=== PATIENT | female | born 1995 ===

== ENCOUNTER 2018-04-20 12:10 | Emergency (ER) | payer OTHER ==
[~2018-04-20] VITALS: Ht 177.8 cm; Wt 83.9 kg
[~2018-04-20 12:10] MED LIST: BUPR75 PO; L-METHYLFOLATE15 M1 PO; LITH300C PO
[2018-04-20] MEDS ORDERED: Robaxin500 MG PO (13:22)
[2018-04-20] MEDS ORDERED: NAPR550 PO (13:22)
== END 2018-04-20 13:35 | disposition home or self-care (01) ==
LOC: ER 12:10
DX: M54.41 Lumbago with sciatica, right side (principal); Z79.899 Other long term (current) drug therapy
CPT/HCPCS: 99283

== ENCOUNTER → 2020-03-26 | Outpatient (CLI) | payer OTHER ==
[~2020-03-26] MED LIST changes: +NAPR550 PO; +Robaxin500 MG PO
== END | disposition home or self-care (01) ==
LOC: LAB 10:49 → LAB SHORT 10:49
DX: N39.0 Urinary tract infection, site not specified (principal)
CPT/HCPCS: 87077; 87086; 87186

== ENCOUNTER 2020-12-16 14:29 | Observation (INO) | payer OTHER, SELFPAY ==
[~2020-12-16] VITALS: Ht 177.8 cm; Wt 88.5 kg
[2020-12-16 14:59] LABS: BASOPHILS ABSOLUTE AUTO 0.03 K/mm3 (0.00-0.23); BASOPHILS PERCENT AUTO 0 % (0-2); EOSINOPHILS ABSOLUTE AUTO 0.16 K/mm3 (0.00-0.68); EOSINOPHILS PERCENT AUTO 2 % (0-6); Hematocrit 39.5 % (33.0-51.0); Hemoglobin 13.7 g/dL (11.5-16.0); IMMATURE GRAN ABSOLUTE AUTO 0.01 K/mm3 (0.00-0.10); IMMATURE GRAN PERCENT AUTO 0 % (0-1); LYMPHOCYTES ABSOLUTE AUTO 1.82 K/mm3 (0.84-5.20); LYMPHOCYTES PERCENT AUTO 27 % (21-46); MONOCYTES ABSOLUTE AUTO 0.49 K/mm3 (0.16-1.47); MONOCYTES PERCENT AUTO 7 % (4-13); Mean Corpuscular HGB 30.8 pg (26.0-34.0); Mean Corpuscular HGB Conc 34.7 g/dL (31.5-36.5); Mean Corpuscular Volume 89 fL (80-100); Mean Platelet Volume 11.7 fL (9.1-12.4); NEUTROPHILS ABSOLUTE AUTO 4.19 K/mm3 (1.96-9.15); NEUTROPHILS PERCENT AUTO 63 % (41-73); Platelet Count 235 K/mm3 (150-400); RDW Coefficient Variation 11.7 % (11.7-14.2); RDW Standard Deviation 37.4 fL (35.1-46.3); Red Blood Cell Count 4.45 M/mm3 (3.80-5.20)
[2020-12-16 15:23] LABS: Anion Gap 5 mmol/L (6-16); Blood Urea Nitrogen 11 mg/dL (8-24); Bun/Creatinine Ratio 14.6 (12.0-20.0); CO2, Blood 25 mmol/L (21-32); Calcium, Blood 9.5 mg/dL (8.5-10.1); Chloride, Blood 108 mmol/L (98-108); Creatinine, Blood 0.76 mg/dL (0.40-1.00); Glomerular Filtration Rate >60 (60-); Glucose, Blood 88 mg/dL (70-99); Potassium, Blood 4.2 mmol/L (3.5-5.5); Sodium, Blood 138 mmol/L (136-145)
[2020-12-16 16:46] LABS: Source, Urine Clean Catch
[2020-12-16 17:05] LABS: Appearance, Urine Cloudy (Clear); Bilirubin, Urine Neg (Neg); Blood, Urine 3+ (Neg); Color, Urine Yellow (P-Yellow); Glucose Qualitative, Urine Neg (Neg); Ketones, Urine Neg (Neg); Leukocyte Esterase, Urine Neg (Neg); Nitrite, Urine Pos (Neg); Protein, Urine Neg (Neg); Urobilinogen, Urine NORM (Normal)
[2020-12-16 17:54] LABS: Amorphous Mod (0-Heavy); Bacteria Many /hpf; Squamous Epithelial Cells Few /hpf (Few); White Blood Cells, Urine Not Seen /hpf (0-5)
[2020-12-16 21:14] LABS: Lithium <0.20 mmol/L (0.60-1.20)
--- NOTE | 2020-12-17 00:10 | NUR ---
PT ARRIVED TO FLOOR FROM ER. PT ALERT, VSS. PT REP ABD PAIN W/PALP IN RLQ AND LLQ, PT DECLINES NNED FOR PAIN MEDS AT THIS TIME. PT REP OCC N/V, DENIES AT THIS TIME. PT DENIES PAIN W/VOIDING. PT ORIENTED TO ROOM/CALL LIGHT AND NPO STATUS FOR PLAN FOR SURGERY TOMORROW. COVID SWAB SENT; AWAITING RESULTS.
[2020-12-17 00:22] LABS: Influenza A, PCR NEGATIVE (NEGATIVE); Influenza B, PCR NEGATIVE (NEGATIVE); Resp Syncytial Virus, PCR NEGATIVE (NEGATIVE); SARS-Cov-2 (COVID-19) PCR, MMC NEGATIVE (NEGATIVE)
--- NOTE | 2020-12-17 07:15 | NUR ---
History, Chart, Medications and Allergies reviewed before start of procedure. Patient confirms NPO status and agrees with scheduled surgery.
--- NOTE | 2020-12-17 08:12 | NUR ---
PT IN OR.
--- NOTE | 2020-12-17 08:27 | NUR ---
12/17/20 0827 Arash Gunter PATIENT ON SCHEDULED ANTIBIOTICS
--- NOTE | 2020-12-17 09:58 | NUR ---
ARRIVED BACK FROM PACU VIA GURANNIE, PT ABLE TO TRANSFER SELF TO BED, AWAKE, A&OX4, DENIES ANY NEED FOR PAIN MEDS AT THIS TIME, DENIES ANY NAUSEA, C/O DRY MOUTH, ICE CHIPS AND CLEAR LIQUIDS GIVEN, ABD W/ 3 LAP INCISIONS, C/D/I, STERISTRIPS INTACT, CONT. TO MONITOR VS AND ANY CHANGES, MEDICATE FOR PAIN PRN.
[2020-12-17] MEDS ORDERED: Norco 5-325 Ta1 EACH PO (16:13)
[2020-12-17] MEDS ORDERED: AMOCLA875 PO (16:14)
--- NOTE | 2020-12-17 16:29 | NUR ---
DC INSTRUCTIONS GIVEN TO PT AND MOM, VERBALIZED UNDERSTANDING, REPORTS HAVING ADEQUATE PAIN CONTROL WITH PO PAIN MEDS, VOIDING WITHOUT DIFFICULTY, PT TO DC HOME WITH MOM.
== END 2020-12-17 16:34 | disposition home or self-care (01) ==
LOC: ER 14:29 → SURS 14:30 → ERHOLD 14:30 → SURS 22:36
PROVIDERS: Emergency Medicine; Physician Assistant; ADMIT Surgery
PROC: 0DTJ4ZZ Resection of Appendix, Percutaneous Endoscopic Approach (ICD-10-PCS; principal; 2020-12-17 07:30)
DX: K35.80 Unspecified acute appendicitis (principal); F31.9 Bipolar disorder, unspecified; F17.210 Nicotine dependence, cigarettes, uncomplicated
CPT/HCPCS: 0241U; 36415; 74177; 80048; 80178; 81001; 81025; 83690; 85025; 87077; 87086; 87186; 88304; 96365-59; 96375; 96376; 99285-25; A9270; G0378; J0295; J1100; J1885; J2250; J2370; J2405; J2543; J2704; J2710; J2765; J3010; J7120; Q9967

== ENCOUNTER → 2022-11-17 | Outpatient (CLI) | payer OTHER ==
[~2022-11-17] MED LIST changes: +AMOCLA875 PO; +Norco 5-325 Ta1 EACH PO
== END | disposition home or self-care (01) ==
LOC: LAB SHORT 15:00
DX: L08.9 Local infection of the skin and subcutaneous tissue, unspecified (principal)
CPT/HCPCS: 87070; 87077; 87147; 87186; 87205